=== PATIENT | female | born 2000 | race Caucasian/White ===

== ENCOUNTER 2022-06-26 21:44 | Emergency (ER) | payer OTHER, SELFPAY ==
[2022-06-26 21:49] VITALS: BP 134/80; PULSE 101; RESP 18; TEMP 36.4; O2SAT 100
[2022-06-26 23:56] VITALS: BP 123/81; PULSE 76; RESP 20; TEMP 36.4; O2SAT 100
[2022-06-27] MEDS: ACETAMINOPHEN 500 MG TABLET 1000 MG PO (00:25)
--- NOTE | 2022-06-27 02:57 | ED.GENADULT ---
HPI - General Adult General Chief complaint: Headache Stated complaint: concussion? I shook my head to hard Time Seen by Provider: 06/27/22 01:34 History of Present Illness HPI narrative: This is a 21-year-old female with a history of panic disorder and recurrent headaches presenting to ED with a headache. Patient said she had a panic attack earlier today and shook her head back and forth too hard. She then developed a band-like pressure headache in her forehead and top of her head. It is 8/10 intensity, slow in onset and slowly getting worse. She did not take any medications before she arrived. She was given Tylenol in the lobby which she said did not help. Patient says that is associated with photophobia/phonophobia. patient has no neurologic deficits. She says she has gotten migraine cocktails in the past that they do not help her. Denies loss of conscious when her headache started. It was not maximal in onset. No neck stiffness. No fevers. Related Data Allergies Allergy/AdvReac Type Severity Reaction Status Date / Time venlafaxine [From Effexor] AdvReac Dizziness Verified 06/26/22 21:52 [facility] Past Medical History Medical History (Updated 06/27/22 @ 03:08 by Bello Jimenez MD) Anxiety Frequent headaches Social History Social History (Updated 06/27/22 @ 02:59 by Bello Jimenez MD) Social History: Patient drinks alcohol occasionally, denies use tobacco or drugs Exam Narrative: APPEARANCE: No apparent distress. patient is speaking very slowly. Head: atraumatic. EYES: EOMI, pupils are jacquelin NOSE: Atraumatic NECK: Trachea midline, soft supple RESPIRATORY: No increased rate of breathing CARDIOVASCULAR: RRR, ABDOMINAL: Non-distended MUSCULOSKELETAl: No obvious deformities NEURO: Alert. Cranial nerves 2-12 grossly intact. Sensation light touch, motor function cerebellar function intact for 4 extremities. Gait exam was normal. SKIN:: Warm, dry. Normal color PSYCHIATRIC: Normal affect Course Vital Signs Vital signs: Vital Signs Temperature 97.5 F L 06/26/22 21:49 Pulse Rate 101 H 06/26/22 21:49 Respiratory Rate 18 06/26/22 21:49 Blood Pressure 134/80 06/26/22 21:49 Pulse Oximetry 100 06/26/22 21:49 Oxygen Delivery Room Air 06/26/22 21:49 Temperature 97.5 F L 06/26/22 23:56 Pulse Rate 76 06/26/22 23:56 Respiratory Rate 20 06/26/22 23:56 Blood Pressure 123/81 06/26/22 23:56 Pulse Oximetry 100 06/26/22 23:56 Oxygen Delivery Room Air 06/26/22 21:49 Medical Decision Making MDM Narrative Medical decision making narrative: -Presentation: 21-year-old female presenting with headache after shaking her head back and forth. patient has no red flags on history and physical. Her neurologic exam is normal. I offered the patient a migraine cocktail and she refused stating that she would just like to go home. -DDX includes but is not limited to: Tension headache, migraine -Co-morbidities complicating care: frequent headaches, anxiety /depression -Social determinants of health: patient works in childcare lives with her boyfriend injury -External Chart Review: none -Hx from independent Sources: Juliocesar @ bedside -Discussion of Management/Consultants: none -Independent interpretation of studies: none Dx tests considered but not ordered: CT head was considered, however there are no red flags on history and physical that would indicate intracranial hemorrhage. -Procedures: None -Interventions: none -Shared decision making / Disposition: after discussing the patient's headache with her I offered her symptomatic treatment. The patient refused instead she would like to go home. Patient was discharged with return precautions. -RX Vital Signs Vital Signs: Vital Signs Temperature 97.5 F L 06/26/22 21:49 Pulse Rate 101 H 06/26/22 21:49 Respiratory Rate 18 06/26/22 21:49 Blood Pressure 134/80 06/26/22 21:49 Pulse Oximetry 100 04
== END 2022-06-27 03:27 | disposition home or self-care (01) ==
PROVIDERS: Emergency Provider Emergency Medicine
DX: G44.209 Tension-type headache, unspecified, not intractable (principal)
CPT/HCPCS: 99282; A9270